=== PATIENT | female | born 1930 | race African-American/Black ===

== ENCOUNTER 2017-07-13 17:04 | Inpatient (IN) | payer MEDICARE, BC, OTHER ==
[2017-07-13] MEDS ORDERED: IV NS 0.9% 1,000 ML BAG IV ONE (18:00)
[2017-07-13] MEDS ORDERED: BENA40TA2 PO (19:17)
[2017-07-13] MEDS ORDERED: NIFE60TA69 PO (19:17)
[2017-07-13] MEDS ORDERED: ATEN100T PO (19:17)
[2017-07-13] MEDS ORDERED: HYDR-4076 PO (19:17)
[2017-07-13] MEDS ORDERED: FAMOTIDINE/PF INJ 40 MG in IV D5W 50 ML IV ONE (19:30)
[2017-07-13] MEDS ORDERED: ZOLPIDEM TARTRATE 5 MG TABLET PO PRN (20:00)
[2017-07-13] MEDS ORDERED: ONDANSETRON HCL/PF 4 MG/2 ML VIAL IVP PRN (20:00)
[2017-07-13] MEDS ORDERED: MAG HYDROX/AL HYDROX/SIMETH 30 ML UDC PO PRN (20:00)
[2017-07-13] MEDS ORDERED: Z GUARD REMEDY 2 OZ OINT TP PRN (20:00)
[2017-07-13] MEDS ORDERED: MAGNESIUM HYDROXIDE 30 ML UDC PO PRN (20:00)
[2017-07-13] MEDS ORDERED: HYDROCODONE/APAP 5/325MG 1 EACH TABLET PO PRN (20:00)
[2017-07-13] MEDS ORDERED: ACETAMINOPHEN 325 MG TABLET PO PRN (20:00)
[2017-07-13] MEDS: IV NS 0.9% 1,000 ML IV PRN (20:11)
[2017-07-14] MEDS: PANTOPRAZOLE 40 MG TABLET.DR PO SCH (08:15)
[2017-07-14] MEDS: ATENOLOL 50 MG TABLET PO SCH (08:16)
[2017-07-14] MEDS ORDERED: hydrALAZINE HCL 25 MG TABLET PO SCH (09:00)
[2017-07-14] MEDS ORDERED: NIFEdipine XL 60 MG TAB PO SCH (09:00)
[2017-07-14] MEDS: Magnesium 1GM/D5W 100ML PREMIX 100 ML IV SCH ×2 (09:39→10:50)
[2017-07-14] MEDS: IV NS 0.9% 1,000 ML IV PRN (13:26)
[2017-07-14] MEDS ORDERED: TRAZODONE 50 MG TABLET ONE (22:54)
[2017-07-14] MEDS: TRAZODONE 50 MG TABLET PO SCH (22:56)
[2017-07-15] MEDS: IV NS 0.9% 1,000 ML IV PRN (04:13)
[2017-07-15] MEDS: ATENOLOL 50 MG TABLET PO SCH (08:36)
[2017-07-15] MEDS: PANTOPRAZOLE 40 MG TABLET.DR PO SCH (08:40)
[2017-07-15] MEDS ORDERED: MAGNESIUM CITRATE 296 ML BOTTLE PO ONE (11:00)
[2017-07-15] MEDS ORDERED: PEG 3350/NA SULF,BICARB,CL/KCL 4,000 ML BOTTLE PO ONE (12:00)
[2017-07-15] MEDS: TRAZODONE 50 MG TABLET PO SCH (21:59)
[2017-07-16] MEDS ORDERED: hydrALAZINE HCL 25 MG TABLET ONE (05:00)
[2017-07-16] MEDS: hydrALAZINE HCL 25 MG TABLET PO SCH ×3 (06:03→20:34)
[2017-07-16] MEDS: PANTOPRAZOLE 40 MG TABLET.DR PO SCH (08:54)
[2017-07-16] MEDS: ATENOLOL 50 MG TABLET PO SCH (08:55)
[2017-07-16] MEDS: BENAZEPRIL HCL 20 MG TABLET PO SCH (08:56)
[2017-07-16] MEDS ORDERED: ANESTHESIA TRAY IN PYXIS 1 EA TRAY MC ONE (13:27)
[2017-07-16] MEDS: TRAZODONE 50 MG TABLET PO SCH (21:47)
[2017-07-17] MEDS: hydrALAZINE HCL 25 MG TABLET PO SCH ×3 (04:06→22:07)
[2017-07-17] MEDS: BENAZEPRIL HCL 20 MG TABLET PO SCH (08:20)
[2017-07-17] MEDS: PANTOPRAZOLE 40 MG TABLET.DR PO SCH (08:20)
[2017-07-17] MEDS: ATENOLOL 50 MG TABLET PO SCH (08:21)
[2017-07-17] MEDS: Magnesium 1GM/D5W 100ML PREMIX 100 ML IV SCH ×2 (10:20→12:12)
[2017-07-17] MEDS: IV NS 0.9% 1,000 ML IV PRN (15:05)
[2017-07-17] MEDS ORDERED: CARBOXYMETHYLCELLULOSE SODIUM 0.4 ML DROPERETTE EACHEYE PRN (16:00)
[2017-07-17] MEDS ORDERED: ALPRAZOLAM 0.25 MG TABLET PO PRN (18:30)
[2017-07-17] MEDS: TRAZODONE 50 MG TABLET PO SCH (22:07)
[2017-07-18] MEDS: hydrALAZINE HCL 25 MG TABLET PO SCH ×3 (04:45→23:23)
[2017-07-18] MEDS: IV NS 0.9% 1,000 ML IV PRN (04:45)
[2017-07-18] MEDS: BENAZEPRIL HCL 20 MG TABLET PO SCH (08:25)
[2017-07-18] MEDS: ATENOLOL 50 MG TABLET PO SCH (08:25)
[2017-07-18] MEDS: PANTOPRAZOLE 40 MG TABLET.DR PO SCH (08:26)
[2017-07-18] MEDS ORDERED: FUROSEMIDE 40 MG/4 ML VIAL IV ONE (09:00)
[2017-07-18] MEDS ORDERED: ALBUTEROL FS 2.5 MG/3 ML VIAL.NEB NEB PRN (09:00)
[2017-07-18] MEDS: MULTIVITAMIN/LUTEIN/MINERALS 1 TAB PO SCH (13:00)
[2017-07-18] MEDS: VITAMIN E 400 UNIT CAPSULE PO SCH (13:00)
[2017-07-18] MEDS: TRAZODONE 50 MG TABLET PO SCH (23:23)
[2017-07-19] MEDS: hydrALAZINE HCL 25 MG TABLET PO SCH ×2 (04:43→12:27)
[2017-07-19] MEDS ORDERED: ALBUT2 NEB (08:23)
[2017-07-19] MEDS ORDERED: ALPR0.255 PO (08:23)
[2017-07-19] MEDS: VITAMIN E 400 UNIT CAPSULE PO SCH (10:04)
[2017-07-19] MEDS: ATENOLOL 50 MG TABLET PO SCH (10:05)
[2017-07-19] MEDS: PANTOPRAZOLE 40 MG TABLET.DR PO SCH (10:06)
[2017-07-19] MEDS: BENAZEPRIL HCL 20 MG TABLET PO SCH (10:06)
[2017-07-19] MEDS: Magnesium 1GM/D5W 100ML PREMIX 100 ML IV SCH ×2 (10:06→12:33)
[2017-07-19] MEDS: MULTIVITAMIN/LUTEIN/MINERALS 1 TAB PO SCH (10:06)
== END 2017-07-19 17:00 | disposition home health service (06) | DRG 377 ==
DX: K26.4 Chronic or unspecified duodenal ulcer with hemorrhage (principal); I50.33 Acute on chronic diastolic (congestive) heart failure; F03.90 Unspecified dementia, unspecified severity, without behavioral disturbance, psychotic disturbance, mood disturbance, and anxiety; E44.1 Mild protein-calorie malnutrition; I95.2 Hypotension due to drugs; E87.1 Hypo-osmolality and hyponatremia; E11.9 Type 2 diabetes mellitus without complications; D50.9 Iron deficiency anemia, unspecified; I10 Essential (primary) hypertension; F33.1 Major depressive disorder, recurrent, moderate; E86.0 Dehydration; Z88.8 Allergy status to other drugs, medicaments and biological substances; Y92.009 Unspecified place in unspecified non-institutional (private) residence as the place of occurrence of the external cause; E78.5 Hyperlipidemia, unspecified; F41.9 Anxiety disorder, unspecified; H35.30 Unspecified macular degeneration; J45.909 Unspecified asthma, uncomplicated; K21.9 Gastro-esophageal reflux disease without esophagitis; K63.5 Polyp of colon; K64.0 First degree hemorrhoids; Z80.0 Family history of malignant neoplasm of digestive organs; Z81.8 Family history of other mental and behavioral disorders; Z85.038 Personal history of other malignant neoplasm of large intestine; F41.1 Generalized anxiety disorder